=== PATIENT | male | born 1960 | race Caucasian/White ===

== ENCOUNTER 2020-11-26 11:05 | Inpatient (IN) | payer MEDICAID ==
[~2020-11-26] VITALS: Ht 180.3 cm; Wt 78.7 kg
[2020-11-26 11:06] VITALS: BP 121/71
[2020-11-26] MEDS ORDERED: NORVASC10 MG PO (11:15)
[2020-11-26] MEDS ORDERED: ADVAIR HFA 115-12 G1 INH (11:15)
[2020-11-26] MEDS ORDERED: CALCIUM CARBON500 MG PO ×2 (11:16→11:21)
[2020-11-26] MEDS ORDERED: BUSPIRONE HCL10 MG PO (11:16)
[2020-11-26] MEDS ORDERED: CLONIDINE HCL0.3 M3 PO (11:16)
[2020-11-26] MEDS ORDERED: ACID REDUCER20 MG PO (11:17)
[2020-11-26] MEDS ORDERED: DONEPEZIL HCL 55 M1 PO (11:17)
[2020-11-26] MEDS ORDERED: LEVETIRACETAM500 M1 PO (11:18)
[2020-11-26] MEDS ORDERED: ZESTRIL40 MG PO (11:18)
[2020-11-26] MEDS ORDERED: TOPROL XL100 MG PO (11:18)
[2020-11-26] MEDS ORDERED: FLOMAX0.4 MG PO (11:19)
[2020-11-26] MEDS ORDERED: SERTRALINE HCL100 MG PO (11:19)
[2020-11-26] MEDS ORDERED: DESYREL150 MG PO ×2 (11:20→19:52)
[2020-11-26] MEDS ORDERED: ACETAMINOPHEN500 M1 PO (11:21)
[2020-11-26] MEDS ORDERED: ARTIFICIAL TEAR1510 OPHTHALMIC (11:21)
[2020-11-26] MEDS ORDERED: SPIRIVA18 MCG INH (11:22)
[2020-11-26] MEDS ORDERED: PROAIR HFA8.5 GM INH (11:22)
[2020-11-26] MEDS ORDERED: SEROQUEL 25 MG25 MG PO (11:22)
[2020-11-26] MEDS ORDERED: DEPAKOTE500 MG PO (11:22)
[2020-11-26] MEDS ORDERED: DEPAKOTE250 MG PO (11:23)
[2020-11-26 12:48] LABS: ABSOLUTE BASOPHILS 0.1 thou/uL (0.0-0.2); ABSOLUTE EOSINOPHILS 0.3 thou/uL (0.0-0.7); ABSOLUTE LYMPHOCYTES 0.9 thou/uL (0.8-5.3); ABSOLUTE MONOCYTES 1.2 thou/uL (0.0-1.2); ABSOLUTE NEUTROPHILS 7.4 thou/uL (1.6-8.1); BASOPHILS 0.7 %; EOSINOPHILS 2.8 %; HEMATOCRIT 44.6 % (42.0-52.0); HEMOGLOBIN 14.9 gm/dL (14.0-18.0); LYMPHOCYTES 9.4 %; MCH 29.6 pg (26.0-34.0); MCHC 33.4 g/dL (28.0-37.0); MCV 88.7 fL (80.0-100.0); MONOCYTES 12.1 %; MPV 10.4 fl. (7.2-11.1); NUCLEATED RBCS 0 /100WBC; PLATELET COUNT* 133 thou/uL (150-400); RBC 5.03 mil/uL (4.50-6.00); WBC 9.8 thou/uL (4.0-11.0)
[2020-11-26 13:00] LABS: CALCIUM 8.5 mg/dL (8.5-10.1); CREATININE 1.1 mg/dL (0.6-1.3)
[2020-11-26 13:09] LABS: POTASSIUM 6.2 mmol/L (3.5-5.1)
[2020-11-26 13:14] LABS: TOTAL BILIRUBIN 0.8 mg/dL (<0.1-1.0); TOTAL PROTEIN 7.3 g/dL (6.4-8.2)
[2020-11-26 13:50] LABS: URINE BILIRUBIN NEGATIVE (Negative); URINE BLOOD NEGATIVE (Negative); URINE CLARITY CLEAR; URINE COLOR YELLOW; URINE GLUCOSE-RANDOM NEGATIVE (Negative); URINE KETONES NEGATIVE (Negative); URINE LEUKOCYTES-REFLEX NEGATIVE (Negative); URINE NITRITE-REFLEX NEGATIVE (Negative); URINE PROTEIN 1+ (Negative); URINE SPECIFIC GRAVITY 1.025 (1.005-1.030); URINE UROBILINOGEN 0.2 E.U./dl (0.2-1.0)
[2020-11-26 18:32] VITALS: BP 151/93
[2020-11-26 20:00] VITALS: BP 136/79
[2020-11-26] MEDS ORDERED: ADVAIR HFA 45-218 GM INH (22:45)
[2020-11-26] MEDS ORDERED: SYNTHROID150 MCG PO (22:50)
[2020-11-27] VITALS (7 sets, daily range): BP systolic 127–166; BP diastolic 72–92
[2020-11-27 04:51] LABS: ALBUMIN 3.1 g/dL (3.4-5.0); ALKALINE PHOSPHATASE 62 U/L (46-116); ANION GAP 11 mmol/L (7-16); BUN 25 mg/dL (7-18); CALCIUM 9.3 mg/dL (8.5-10.1); CHLORIDE 103 mmol/L (98-107); CHOLESTEROL 155 mg/dL (<200); CO2 25 mmol/L (21-32); GLUCOSE 76 mg/dL (70-99); HDL CHOLESTEROL 32 mg/dL (>40); LDL CHOLESTEROL 103 mg/dL (<100); POTASSIUM 3.9 mmol/L (3.5-5.1); SGOT 40 U/L (15-37); SGPT 42 U/L (30-65); SODIUM 139 mmol/L (136-145); TC:HDL 4.8 Ratio (Not establshd); TOTAL BILIRUBIN 0.8 mg/dL (<0.1-1.0); TOTAL PROTEIN 6.7 g/dL (6.4-8.2); TRIGLYCERIDE 102 mg/dL (<150); VLDL 20 mg/dL (<40)
[2020-11-27 04:53] LABS: SERUM ASSESSMENT Clear
--- NOTE | 2020-11-27 09:48 | EKG ---
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
[2020-11-27 09:52] LABS: CALCIUM 8.6 mg/dL (8.5-10.1)
[2020-11-27 09:56] LABS: PHOSPHORUS* 2.7 mg/dL (2.5-4.9)
--- NOTE | 2020-11-27 10:17 | H ---
[address] [address] HISTORY AND PHYSICAL Name: JACKIE JUAREZ Room: [address] ADM IN M.R.#: [id number] Admission: 11/26/20 Attend Phys: Selam Beverly Discharge: Date of : 60 Report #: [id number] THIS REPORT FOR: cc: FAM - No family physician/PCP FAM - No family physician/PCP Janet Fung DO ~ DATE OF SERVICE: 11/27/2020 NEUROLOGY CONSULT LOCATION: In room 218. HISTORY OF PRESENT ILLNESS: The patient is a 60-year-old male who has been living in a care home for approximately 18 months. The patient himself was unable to provide much history. However, he did tell me that he got out of bed today and was able to walk to the bathroom because he could not wait for someone to help him. He felt that he was steady on his feet. He did tell me though that he had fallen prior to admission and that was why he was in the hospital. I spoke to his son, Jackie Rea and Jackie Rea's by telephone. 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 At least while he is in the care home, he cannot drink, although he does continue to smoke. They have no intention of getting him to stop smoking. His [id number] states that the patient has been on donepezil for approximately 2-3 weeks. He also has some difficulty with his mood, for example he might say that he would like to leave the care home and of course he cannot do that. It has been difficult to see the patient because of COVID, but now they can at least do a 30-minute visits. She states that the Depakote was recently increased that was given in place of Xanax to her understanding. PAST MEDICAL HISTORY: Dementia, chronic obstructive pulmonary disease, benign prostatic hypertrophy, hypertension, gastroesophageal reflux, seizure disorder, depression. PAST SURGICAL HISTORY: Unknown. MEDICATIONS: In the care home, the patient was taking Advair 115/21 daily, Norvasc 10 mg daily, buspirone 10 mg t.i.d., calcium b.i.d., clonidine 0.2 mg b.i.d., donepezil 5 mg at bedtime, famotidine 20 mg at bedtime, levetiracetam 500 mg b.i.d., lisinopril 40 mg b.i.d., metoprolol 100 mg b.i.d., sertraline 100 mg daily, tamsulosin 0.4 mg b.i.d., trazodone at bedtime, Spiriva daily, quetiapine 25 mg b.i.d., Depakote 500 mg in the morning and 1000 [place] [address] HISTORY AND PHYSICAL Name: JACKIE JUAREZ Room: [address] IN [facility].#: [id number] Admission: 11/26/20 Attend Phys: Selam Beverly Discharge: Date of : 60 Report #: [id number] ALLERGIES: None. PHYSICAL EXAMINATION: VITAL SIGNS: Temperature 37, pulse rate 69, respiratory rate 18, blood pressure 146/80, bedside pulse oximetry 92% on room air. NEUROLOGIC: Cranial nerves 2-12 are grossly intact. Motor exam demonstrates symmetrical strength in all 4 extremities. The patient is able to raise his arms above his head and lift each leg several inches off the bed. Reflexes are absent. Plantar responses are flexor. Coordination demonstrates no evidence of dysmetria. Gait was not tested for safety reasons. LABORATORY WORK: Hematology: White blood cell count 9.8, hemoglobin 14.9, hematocrit 44.6, MCV 88.7, platelet count 133,000. Urinalysis; 1+ protein. Chemistry: Sodium 139, potassium 3.9, chloride 103, carbon dioxide 25, BUN 25, creatinine 1, GFR 76. Liver functions normal with the exception of AST, which is 40. Lipid profile unremarkable with the exception of LDL, which is 103 and HDL, which is 32. Toxicology, Depakote level 69. IMAGING: CT scan of the head shows moderate cerebral atrophy and moderate microvascular disease. IMPRESSION: This patient has a history of dementia. This may be from alcohol use, although given the findings on the CT scan, he may also have Alzheimer's disease or microvascular disease for that matter. The patient is on donepezil 5 mg at bedtime. According to his [id number], he has been on this for 2 or 3 weeks. If he tolerates it well after the patient has been on the medication for 4 weeks, the dose can be increased to 10 mg at bedtime. To complete the dementia workup, I have ordered a B12 and TSH. As for the falling, what brought him to the hospital, the patient may have peripheral neuropathy. He has absent reflexes and also appears to have atrophy of the intrinsic muscles of the feet. This neuropathy, could also be from alcohol use, but again a B12 and TSH have been ordered, which will also be helpful for ruling out treatable causes of neuropathy. I would recommend an outpatient EMG if he would like to work this up further. The patient also has a seizure disorder. I would continue levetiracetam 500 mg b.i.d. You should be aware that levetiracetam can cause a mood disorder, so perhaps in this patient if he has a mood disorder this may not be the best medication. Perhaps some coordination of care between the primary care and a psychiatrist would be helpful, so the patient is either on levetiracetam or Depakote. I would certainly not put him back on the dose of Depakote, he was taking when this event occurred and perhaps the Depakote should be discontinued altogether. I will ask Dr. Forman to see [place] [address] HISTORY AND PHYSICAL Name: JACKIE JUAREZ Room: [address] IN [facility]#: [id number] Admission: 11/26/20 Attend Phys: Selam Beverly Discharge: Date of : 60 Report #: [id number] Thank you for your kind referral of the patient. <ELECTRONICALLY SIGNED> By: Janet Fung DO 11/27/20 1017 0902 Jolanta Fung, /nt
[2020-11-28 02:05] LABS: GLYCOHEMOGLOBIN (HGB A1C) 5.7 % (4.8-5.6)
[2020-11-28 03:36] VITALS: BP 121/69
[2020-11-28 05:54] LABS: ALBUMIN 2.7 g/dL (3.4-5.0); CALCIUM 8.5 mg/dL (8.5-10.1); CREATININE 1.1 mg/dL (0.6-1.3); POTASSIUM 3.6 mmol/L (3.5-5.1); TOTAL BILIRUBIN 0.4 mg/dL (<0.1-1.0); TOTAL PROTEIN 6.7 g/dL (6.4-8.2)
[2020-11-28 09:00] VITALS: BP 138/83
[2020-11-28 12:00] VITALS: BP 138/82
[2020-11-28 16:00] VITALS: BP 156/85
[2020-11-29 00:36] VITALS: BP 174/98
[2020-11-29 04:59] VITALS: BP 173/88
[2020-11-29 08:33] VITALS: BP 156/88
[2020-11-29 13:44] VITALS: BP 151/82
[2020-11-29 15:35] VITALS: BP 137/83
[2020-11-29 21:00] VITALS: BP 137/75
[2020-11-30 08:00] VITALS: BP 138/89
[2020-11-30 09:18] VITALS: BP 138/89
[2020-11-30] MEDS ORDERED: LIPITOR10 MG PO (12:17)
[2020-11-30] MEDS ORDERED: VITAMIN B-150 M1 PO (12:38)
== END 2020-11-30 15:00 | DRG 93 ==
LOC: M.ERS 11:05 → M.TBA-ER 16:37 → M.2W 18:46 → M.ORTHSURG 11-29 14:00
PROVIDERS: Physician Assistant; ADMIT Internal Medicine; ATTEND Internal Medicine
DX: G92 Toxic encephalopathy (principal); J44.9 Chronic obstructive pulmonary disease, unspecified; I10 Essential (primary) hypertension; K21.9 Gastro-esophageal reflux disease without esophagitis; N40.0 Benign prostatic hyperplasia without lower urinary tract symptoms; F32.9 Major depressive disorder, single episode, unspecified; E87.5 Hyperkalemia; G40.909 Epilepsy, unspecified, not intractable, without status epilepticus; G30.9 Alzheimer's disease, unspecified; F02.80 Dementia in other diseases classified elsewhere, unspecified severity, without behavioral disturbance, psychotic disturbance, mood disturbance, and anxiety; Z20.822 Contact with and (suspected) exposure to COVID-19; Z79.899 Other long term (current) drug therapy